=== PATIENT | female | born 1970 | race Caucasian/White ===

== ENCOUNTER → 2016-12-25 | Outpatient (CLI) | payer BC ==
[~2016-12-25] MED LIST: INSUINJ17; NVLGI; PRENTAB26
[2016-12-25 12:59] LABS: ESTIMATED AVERAGE GLUCOSE 180 mg/dl; HA1C FLAG Normal (Normal)
[2016-12-25 13:02] LABS: ALT/SGPT 39 U/L (12-78); BLOOD UREA NITROGEN 10 mg/dl (7-18); BUN/CREATININE RATIO 14.6 (10-20); CALCIUM 9.2 mg/dl (8.5-10.1); CARBON DIOXIDE 26 mmol/L (21-32); CHLORIDE 106 mmol/L (98-107); CHOLESTEROL 140 mg/dl (0-200); CREATININE 0.65 mg/dl (0.60-1.20); GLUCOSE 158 mg/dl (70-99); POTASSIUM 4.3 mmol/L (3.5-5.1); SODIUM 139 mmol/L (136-145); TRIGLYCERIDES 80 mg/dl (0-150); VERY LOW DENSITY LIPOPROT CALC 16 mg/dl
[2016-12-25 13:12] LABS: ALKALINE PHOSPHATASE 65 U/L (45-117); AST/SGOT 24 U/L (15-37); CHOLESTEROL/HDL RATIO 3.2; HDL CHOLESTEROL 44 mg/dl; LDL CHOLESTEROL CALCULATED 80 mg/dl
[2016-12-25 13:16] LABS: RATIO 19.7 mcg/mg (0-30.0)
== END | disposition home or self-care (01) ==
LOC: C.LABPBG 07:52
PROVIDERS: ATTEND Family Medicine
DX: E11.9 Type 2 diabetes mellitus without complications (principal); E78.5 Hyperlipidemia, unspecified; E55.9 Vitamin D deficiency, unspecified

== ENCOUNTER → 2017-03-02 | Outpatient (CLI) | payer BC ==
--- NOTE | 2017-03-03 15:08 | MAMMOGRAPHY REPORT ---
BILATERAL DIGITAL SCREENING MAMMOGRAM TOMOSYNTHESIS WITH CAD: 03/02/2017 CLINICAL HISTORY: Routine screening. Patient has no complaints. TECHNIQUE: Breast tomosynthesis in addition to standard 2D mammography was performed. Current study was also evaluated with a Computer Aided Detection (CAD) system. COMPARISON: Comparison is made to exams dated: 10/02/2014 mammogram, 09/25/2013 mammogram - [facility], and 12/04/2010 mammogram. BREAST COMPOSITION: There are scattered areas of fibroglandular density in both breasts. FINDINGS: There are increasing asymmetries in the medial right breast on the CC view, and in the upp er outer middle one third of the left breast. Although these findings could be related to hormone us e and represent normal fibroglandular tissue, additional targeted ultrasound and possible additional mammographic views are recommended. No other suspicious mass, architectural distortion or cluster of microcalcifications is seen. IMPRESSION: ACR BI-RADS CATEGORY 0: INCOMPLETE EVALUATION: NEED ADDITIONAL IMAGING EVALUATION The increasing asymmetries in the medial right breast and upper outer left breast need additional aime ging evaluation. The patient will be called to schedule an appointment. Approximately 10% of breast cancers are not detected with mammography. A negative mammographic report should not delay biopsy if a clinically suggestive mass is present. Bethanie David M.D. ay/:03/02/2017 16:32:49 Tractor Sweeper Driver: Elizabeth Cash, [facility] letter sent: Addl Imaging 0 BI-RADS Code: ACR BI-RADS Category 0: Incomplete Evaluation: Need Additional Imaging Evaluation
== END | disposition home or self-care (01) ==
LOC: C.MAMM 14:28
PROVIDERS: ATTEND Obstetrics & Gynecology
DX: Z12.31 Encounter for screening mammogram for malignant neoplasm of breast (principal); N64.9 Disorder of breast, unspecified

== ENCOUNTER → 2017-03-23 | Outpatient (CLI) | payer BC ==
--- NOTE | 2017-03-24 14:03 | MAMMOGRAPHY REPORT ---
UNILATERAL RIGHT DIGITAL DIAGNOSTIC MAMMOGRAM TOMOSYNTHESIS AND TARGETED BILATERAL ULTRASOUND: 03/23/19 18 CLINICAL HISTORY: 46-year-old woman called back from screening mammography for increasing asymmetries in the medial right breast and upper outer left breast. Patient denies hormone replacement therapy or significant fluctuation in weight. Family history of breast cancer = grandmother. TECHNIQUE: Spot compression tomosynthesis right CC and MLO views were obtained. COMPARISON: Comparison is made to exams dated: 03/02/2017 mammogram, 10/02/2014 mammogram - [facility], 12/04/2010 mammogram, and 09/25/2013 mammogram - [facility]. BREAST COMPOSITION: There are scattered areas of fibroglandular density in the right breast. FINDINGS: The spot compression tomosynthesis views of the right breast demonstrate partial effacemen t of the asymmetry best seen in the medial breast on the CC view. The current tomosynthesis images h ave the appearance of normal glandular tissue. There is no architectural distortion, suspicious mass or calcifications. Further evaluation with ultrasound was performed in the medial right breast and superior left breast. Targeted ultrasound performed in the medial right breast demonstrates an island of dense tissue in th e 4:00 axis, 2 cm from the nipple that could represent fibroglandular tissue or possibly PASH. Simila r appearing dense glandular tissue is seen in the left superior breast most prominent in the 12:00 ax is. No suspicious solid or cystic mass is identified bilaterally. IMPRESSION: ACR-BI-RADS CATEGORY 3: PROBABLY BENIGN, TARGETED ULTRASOUND ACR-BI-RADS CATEGORY 3: PRO BABLY BENIGN The increasing asymmetries in the right medial breast and superior left breast most likely represent normal glandular tissue accounting for differences in mammographic technique or positioning, or benig n entity such as PASH. However, a short interval follow-up bilateral diagnostic tomosynthesis mammog jamee and possible ultrasound is recommended to ensure stability in 6 months. These results and recommendations were discussed with the patient at the time of the exam. Approximately 10% of breast cancers are not detected with mammography. A negative mammographic report should not delay biopsy if a clinically suggestive mass is present. Bethanie David M.D. ay/:03/23/2017 15:07:32 Leave Specialist: Angie ANGEL)(Mel), [facility] letter sent: Follow Up Recommended 3 BI-RADS Code: ACR-BI-RADS Category 3: Probably Benign Ultrasound BI-RADS: ACR-BI-RADS Category 3: Pr obably Benign
== END | disposition home or self-care (01) ==
LOC: C.MAMM 13:18
PROVIDERS: ATTEND Obstetrics & Gynecology
DX: N64.89 Other specified disorders of breast (principal)

== ENCOUNTER → 2017-06-02 | Outpatient (CLI) | payer BC ==
[2017-06-02 13:13] LABS: BASO % 0.3 %; BASO ABS # 0.02 K/uL (0-0.2); EOS % 1.9 %; EOS ABS # 0.13 K/uL (0-0.5); HEMATOCRIT 37.9 % (37-47); HEMOGLOBIN 12.2 g/dL (12.0-16.0); IG# 0.01 K/uL (0.00-0.02); LYMPH % 25.1 %; LYMPH ABS # 1.74 K/uL (1.2-3.4); MEAN CORPUSCULAR HEMOGLOBIN 25.1 pg (25-34); MEAN CORPUSCULAR HGB CONC 32.2 g/dl (32-36); MEAN PLATELET VOLUME 11.1 fL (7.4-10.4); MONO % 7.8 %; MONO ABS # 0.54 K/uL (0.11-0.59); NEUT % 64.8 %; NEUT ABS # 4.49 K/uL (1.4-6.5); PLATELET COUNT 312 K/uL (130-400); RED CELL DISTRIBUTION WIDTH CV 15.4 % (11.5-14.5); RED CELL DISTRIBUTION WIDTH SD 43.7 fL (36.4-46.3); WHITE BLOOD COUNT 6.93 K/uL (4.8-10.8)
[2017-06-02 13:29] LABS: ALBUMIN 3.7 gm/dl (3.4-5.0); ALT/SGPT 37 U/L (12-78); AST/SGOT 20 U/L (15-37); BLOOD UREA NITROGEN 10 mg/dl (7-18); CALCIUM 8.9 mg/dl (8.5-10.1); CARBON DIOXIDE 25 mmol/L (21-32); CHOLESTEROL 115 mg/dl (0-200); CREATININE 0.61 mg/dl (0.60-1.20); GLUCOSE 125 mg/dl (70-99); SODIUM 136 mmol/L (136-145)
[2017-06-02 13:32] LABS: ALKALINE PHOSPHATASE 58 U/L (45-117); LDL CHOLESTEROL CALCULATED 56 mg/dl; TOTAL PROTEIN 7.2 gm/dl (6.4-8.2)
[2017-06-03 06:54] LABS: HEMOGLOBIN A1C 7.4 % (4.5-5.6)
== END | disposition home or self-care (01) ==
LOC: C.LABPBG 08:03
PROVIDERS: ATTEND Family Medicine
DX: E11.9 Type 2 diabetes mellitus without complications (principal); E78.5 Hyperlipidemia, unspecified; E55.9 Vitamin D deficiency, unspecified; N92.0 Excessive and frequent menstruation with regular cycle

== ENCOUNTER → 2017-09-20 | Outpatient (CLI) | payer BC ==
--- NOTE | 2017-09-20 15:11 | MAMMOGRAPHY REPORT ---
BILATERAL DIGITAL DIAGNOSTIC MAMMOGRAM TOMOSYNTHESIS WITH CAD: 09/20/2017 CLINICAL HISTORY: 47-year-old woman presents for follow-up in both breasts for increasingly prominent asymmetries in the medial right breast and upper outer left breast. She denies fluctuation in weight and hormone replacement therapy. TECHNIQUE: Bilateral CC and MLO 2D and tomosynthesis images were obtained. Current study was also ev aluated with a Computer Aided Detection (CAD) system. COMPARISON: Comparison is made to exams dated: 03/23/2017 mammogram, 03/02/2017 mammogram, 10/02/2014 ma mmogram, 09/25/2013 mammogram - [facility], and 12/04/2010 mammogram. BREAST COMPOSITION: There are scattered areas of fibroglandular density in both breasts. FINDINGS: The right medial asymmetry is less prominent comparing to the 03/02/2017 mammogram. The asy mmetry in the upper outer left breast has the appearance of normal fibroglandular tissue. Overall, n o suspicious masses, asymmetries, calcification or areas of architectural distortion are seen bilater ally. The current glandular pattern is somewhat similar to the 2010 and 2013 mammograms, suggesting these findings are due to different technique and/or compression. There is no mammographic evidence of malignancy and recommend return to annual screening mammography schedule, due in February 2018. IMPRESSION: ACR BI-RADS CATEGORY 2: BENIGN There is no mammographic evidence of malignancy in the breasts. Slight increased density bilaterally is likely due to technical parameters due to different equipment. Recommend return to annual screen ing mammography schedule, due in February 2018. These results and recommendations were discussed with the patient at the time of the exam. Some breast cancers are not detected with mammography. A negative mammographic report should not kendy y biopsy if a clinically suggestive mass is present. Bethanie David M.D. ay/:09/20/2017 14:44:39 Fuel Testing Technician: Elizabeth Cash, [facility] letter sent: Normal 1/2 BI-RADS Code: ACR BI-RADS Category 2: Benign
== END | disposition home or self-care (01) ==
LOC: C.MAMM 08:43
PROVIDERS: ATTEND Obstetrics & Gynecology
DX: N64.9 Disorder of breast, unspecified (principal)

== ENCOUNTER 2017-10-02 11:23 | Emergency (ER) | payer BC ==
[~2017-10-02] VITALS: Ht 160 cm; Wt 94.9 kg
[2017-10-02 11:26] VITALS: TEMP 36.7; Ht 160 cm; Wt 94.9 kg
[2017-10-02] MEDS ORDERED: ONDANSETRON INJ 2 MG/ML 2 ML VIAL IV STA (11:58)
[2017-10-02] MEDS ORDERED: SODIUM CHLORIDE 0.9% 1000ML 1,000 ML IV STA (11:58)
[2017-10-02 12:27] VITALS: O2SAT 98
[2017-10-02 12:39] LABS: BASO % 0.1 %; BASO ABS # 0.01 K/uL (0-0.2); HEMATOCRIT 38.8 % (37-47); HEMOGLOBIN 12.6 g/dL (12.0-16.0); IG# 0.03 K/uL (0.00-0.02); LYMPH % 20.6 %; LYMPH ABS # 1.62 K/uL (1.2-3.4); MEAN CELL VOLUME 77.3 fL (80-100); MEAN CORPUSCULAR HEMOGLOBIN 25.1 pg (25-34); MEAN CORPUSCULAR HGB CONC 32.5 g/dl (32-36); MEAN PLATELET VOLUME 10.8 fL (7.4-10.4); MONO % 9.7 %; MONO ABS # 0.76 K/uL (0.11-0.59); NEUT % 69.2 %; NEUT ABS # 5.45 K/uL (1.4-6.5); PLATELET COUNT 315 K/uL (130-400); RED CELL DISTRIBUTION WIDTH CV 15.3 % (11.5-14.5); RED CELL DISTRIBUTION WIDTH SD 42.7 fL (36.4-46.3); WHITE BLOOD COUNT 7.87 K/uL (4.8-10.8)
[2017-10-02] MEDS ORDERED: OMEG10007 PO (12:46)
[2017-10-02] MEDS ORDERED: GABA-113 PO (12:46)
[2017-10-02] MEDS ORDERED: SITA100T3 PO (12:46)
[2017-10-02] MEDS ORDERED: ASPI81TA28 PO (12:46)
[2017-10-02] MEDS ORDERED: CHOL1000 PO (12:46)
[2017-10-02] MEDS ORDERED: PRLSR20 PO (12:46)
[2017-10-02] MEDS ORDERED: GLC/500 PO (12:46)
[2017-10-02] MEDS ORDERED: GLUC15002 PO (12:46)
[2017-10-02] MEDS ORDERED: CYAN1TAB5 PO (12:46)
[2017-10-02] MEDS ORDERED: ROSU20TA PO (12:46)
--- NOTE | 2017-10-02 12:54 | EMERGENCY ROOM VISIT NOTE ---
History Report prepared by Lalo: Anabel Crenshaw Under the Supervision of: Emani LopezO. First contact with patient: 11:54 Chief Complaint: ABDOMINAL PAIN Stated Complaint: UPSET STOMACH,PAIN,BACKACHE,WEAKNESS,TIRED History of Present Illness The patient is a 47 year old female who presents to the Emergency Room with complaints of worsening abdominal pain that onset in in the past week. The patient notes that she was referred to the ED by her PCP. She notes that she takes Januvia for hyperglycemia, but the medication gives her nausea and abdominal pain. She states that she has not taken it today to try to reduce her nausea. The patient complains of back pain and nausea. The patient denies fever , unitary symptoms, chest pain, shortness of breath, vaginal bleeding, vaginal discharge, diarrhea, and vomiting. The patient has a history of cholecystectomy , D&E, her tubes tied and a miscarriage. The patient notes that her last period was last week. Source of History: patient Onset: this past week Position: abdomen Timing: worsening Modifying Factors (Worsening): other (Januvia) Associated Symptoms: + nausea, + back pain, No fevers, No chest pain, No SOB , No vomiting, No diarrhea, No urinary symptoms Note: The patient denies vaginal bleeding and vaginal discharge. Review of Systems See HPI for pertinent positives & negatives. A total of 10 systems reviewed and were otherwise negative. Past Medical & Surgical Medical Problems: (1) Miscarriage Surgical Problems: (1) H/O tubal ligation Social History Smoking Status: Never Smoker Current/Historical Medications Scheduled Aspirin (Aspirin Ec), 81 MG PO DAILY Cholecalciferol (Vitamin D3), 1 TAB PO HS Cyanocobalamin (B-12), 2,000 MCG PO WK Fish Oil ([place]-3), 2 CAP PO HS Gabapentin (Neurontin), 300 MG PO HS Liqgcljquuw-Qnemachjpje-Fpi C- (Glucosamine 1500 Complex), 1 CAP PO BID Metformin Hcl (Glucophage), 1,000 MG PO BID Omeprazole (Prilosec), 20 MG PO BID Ondasetron Odt (Zofran Odt), 4 MG SL Q6H Ranitidine Hcl (Zantac), 150 MG PO BID Rosuvastatin Calcium (Crestor), 20 MG PO HS Sitagliptin Phosphate (Januvia), 100 MG PO DAILY Allergies Coded Allergies: Meperidine (Verified Allergy, Mild, SWELLING, 10/02/17) Physical Exam Vital Signs Date Time Temp Pulse Resp B/P (MAP) Pulse Ox O2 Delivery O2 Flow Rate FiO2 10/02/17 14:02 66 18 144/87 99 Room Air 10/02/17 12:27 98 Room Air 10/02/17 12:27 98 Room Air 10/02/17 12:22 66 10/02/17 11:26 36.7 107 18 197/121 97 Room Air Physical Exam GENERAL: Patient is awake, alert, and in no acute distress. Patient is resting comfortably and showing no signs of anxiety EYES: The conjunctivae are clear. The pupils are round and reactive. EARS, NOSE, MOUTH AND THROAT: The nose is without any evidence of any deformity. Mucous membranes are moist. Tongue is midline NECK: The neck is nontender and supple. RESPIRATORY: Normal respiratory effort is noted. There is no evidence of wheezing rhonchi or rales to auscultation. CARDIOVASCULAR: Regular rate and rhythm noted. There no murmurs rubs or gallops normal S1 normal S2 GASTROINTESTINAL: The abdomen is soft. Bowel sounds are present in all quadrants. Abdomen is nontender. BACK: No midline tenderness or or step-off noted range of motion in flexion extension as well as rotation no signs of muscle spasm noted. MUSCULOSKELETAL/EXTREMITIES: There is no evidence of gross deformity. Full range of motion is noted in the hips and shoulders. SKIN: There is no obvious evidence of any rash. There are no petechiae, pallor or cyanosis noted. NEUROLOGIC: Patient is awake alert and oriented x3. [Strength is symmetric. Patellar reflexes are 2+ bilaterally.] Medical Decision & Procedures ER Provider Diagnostic Interpretation: GALLBLADDER-ABD LIMITED CLINICAL HISTORY: 47 years-old Female presenting with sent by PCP for pancreatitis work up. TECHNIQUE: Real-time grayscale and limited color Doppler ultrasound imaging of the abdomen limited to the right upper quadrant was performed. COMPARISON: None. FINDINGS: Pancreas: Visualized portions of the pancreatic head and body normal. Liver: Mildly hyperechogenic parenchyma, although the right hemidiaphragm remains visible, likely indicating mild steatosis. The liver measures 18.0 cm in maximal sagittal dimension. No sonographic evidence of hepatic mass. Main portal vein patent with normal directional flow. Biliary: No intrahepatic biliary ductal dilatation. Common bile duct measures up to 4 mm in diameter. Gallbladder: Surgically absent. Right kidney: Normal in appearance without evidence of hydronephrosis. Ascites: None. Other: None. IMPRESSION: 1. Hepatic steatosis. Correlate with liver function tests to exclude steatohepatitis as a cause for abdominal pain. 2. No sonographic evidence of pancreatitis, which does not exclude the diagnosis. Correlate with serum lipase. Electronically signed by: Paco Naranjo M.D. 10/02/2017 1:37 PM Dictated Date/Time: 10/02/2017 1:35 PM ABDOMEN 2VIEW W/PA CHEST RTN CLINICAL HISTORY: 47 years-old Female presenting with sent by PCP for pancreatitis work up. TECHNIQUE: PA view of the chest and supine and upright views of the abdomen were obtained. COMPARISON: CT from 2006 an ultrasound from earlier today. FINDINGS: Cardiomediastinal silhouette normal. Lungs and pleural spaces clear. Cholecystectomy clips noted. Additional surgical clip in the left mid abdomen. Nonobstructive bowel gas pattern. Small bowel wall thickening is difficult to exclude based on the appearance of bowel in the left abdomen. No gross pneumoperitoneum. Allowing for bowel gas and stool, no calcifications to suggest nephrolithiasis. Right hemipelvic phleboliths noted. Osseous structures normal. IMPRESSION: 1. No acute cardiopulmonary disease. 2. Questionable small bowel wall thickening, which may suggest mild enteritis. No obstruction or free air. Electronically signed by: Paco Naranjo M.D. 10/02/2017 1:56 PM Dictated Date/Time: 10/02/2017 1:54 PM Laboratory Results 10/02/17 12:22 Red Blood Count 5.02, Mean Corpuscular Volume 77.3, Mean Corpuscular Hemoglobin 25.1, Mean Corpuscular Hemoglobin Concent 32.5, Mean Platelet Volume 10.8, Neutrophils (%) (Auto) 69.2, Lymphocytes (%) (Auto) 20.6, Monocytes (%) (Auto) 9.7, Eosinophils (%) (Auto) 0.0, Basophils (%) (Auto) 0.1, Neutrophils # (Auto) 5.45, Lymphocytes # (Auto) 1.62, Monocytes # (Auto) 0.76, Eosinophils # (Auto) 0.00, Basophils # (Auto) 0.01 10/02/17 12:22 Test 10/02/17 12:22 White Blood Count 7.87 K/uL (4.8-10.8) Red Blood Count 5.02 M/uL (4.2-5.4) Hemoglobin 12.6 g/dL (12.0-16.0) Hematocrit 38.8 % (37-47) Mean Corpuscular Volume 77.3 fL (80-100) Mean Corpuscular Hemoglobin 25.1 pg (25-34) Mean Corpuscular Hemoglobin Concent 32.5 g/dl (32-36) Platelet Count 315 K/uL (130-400) Mean Platelet Volume 10.8 fL (7.4-10.4) Neutrophils (%) (Auto) 69.2 % Lymphocytes (%) (Auto) 20.6 % Monocytes (%) (Auto) 9.7 % Eosinophils (%) (Auto) 0.0 % Basophils (%) (Auto) 0.1 % Neutrophils # (Auto) 5.45 K/uL (1.4-6.5) Lymphocytes # (Auto) 1.62 K/uL (1.2-3.4) Monocytes # (Auto) 0.76 K/uL (0.11-0.59) Eosinophils # (Auto) 0.00 K/uL (0-0.5) Basophils # (Auto) 0.01 K/uL (0-0.2) RDW Standard Deviation 42.7 fL (36.4-46.3) RDW Coefficient of Variation 15.3 % (11.5-14.5) Immature Granulocyte % (Auto) 0.4 % Immature Granulocyte # (Auto) 0.03 K/uL (0.00-0.02) Urine Color YELLOW Urine Appearance CLEAR (CLEAR) Urine pH 5.0 (4.5-7.5) Urine Specific Raymond 1.018 (1.000-1.030) Urine Protein TRACE (NEG) Urine Glucose (UA) TRACE (NEG) Urine Ketones 1+ (NEG) Urine Occult Blood NEG (NEG) Urine Nitrite NEG (NEG) Urine Bilirubin NEG (NEG) Urine Urobilinogen NEG (NEG) Urine Leukocyte Esterase NEG (NEG) Urine WBC (Auto) 1-5 /hpf (0-5) Urine RBC (Auto) 0-4 /hpf (0-4) Urine Hyaline Casts (Auto) 1-5 /lpf (0-5) Urine Epithelial Cells (Auto) 20-30 /lpf (0-5) Urine Bacteria (Auto) NEG (NEG) Anion Gap 9.0 mmol/L (3-11) Est Creatinine Clear Calc Drug Dose 103.2 ml/min Estimated GFR () 112.9 Estimated GFR (Non- 97.4 BUN/Creatinine Ratio 12.8 (10-20) Calcium Level 9.7 mg/dl (8.5-10.1) Magnesium Level 1.8 mg/dl (1.8-2.4) Total Bilirubin 0.5 mg/dl (0.2-1) Direct Bilirubin 0.2 mg/dl (0-0.2) Aspartate Amino Transf (AST/SGOT) 39 U/L (15-37) Alanine Aminotransferase (ALT/SGPT) 44 U/L (12-78) Alkaline Phosphatase 63 U/L (45-117) Total Protein 8.2 gm/dl (6.4-8.2) Albumin 3.8 gm/dl (3.4-5.0) Lipase 83 U/L (73-393) Human Chorionic Gonadotropin, Qual NEG (NEG) Laboratory results per my review. Medications Administered Medications (Trade) Dose Ordered Sig/Libra Route Start Time Stop Time Status Last Admin Dose Admin Ondansetron HCl (Zofran Inj) 4 mg NOW STAT IV 10/02/17 11:58 10/02/17 12:00 DC 10/02/17 12:45 4 MG Sodium Chloride 1,000 ml @ 999 mls/hr Q1H1M STAT IV 10/02/17 11:58 10/02/17 12:58 DC 10/02/17 11:58 999 MLS/HR ED Course 1155: The patient was evaluated in room B6. A complete history and physical examination were performed. 1158: Ordered Sodium Chloride 1,000 ml @ 999 mls/hr IV, Zofran 4 mg IV. 1410: Upon reevaluation, the patient is resting comfortably. I discussed the results and treatment plan with her. She verbalized agreement of the treatment plan. She was discharged home. Medical Decision Prior records/ancillary studies reviewed. Triage Nursing notes reviewed. The patient's history was concerning for abdominal pain. Differential diagnosis: Etiologies such as appendicitis, diverticulitis, PUD, biliary pathology, UTI, pancreatitis, obstruction, mesenteric ischemia, aortic pathology, infections, inflammatory bowel disease, renal colic, as well as others were entertained. The patient is a 47-year-old female who presented to the [facility] department with epigastric abdominal pain. The patient did not have a physical exam consistent with an acute surgical abdomen. The patient was treated with IV fluids and IV Zofran. She was feeling much better on subsequent reevaluation. The patient states that she has had ongoing pain for the last few months. She states it is related to 1 of her medications. I discussed patient's laboratory and radiographic studies with her. She states she was sent to the emergency department today specifically for the possibility of pancreatitis. She does not appear to have pancreatitis by laboratory studies. She was encouraged to continue all medications as prescribed and follow-up with her primary care physician prior to changing any medication regimens. She is also encouraged to return the emergency department immediately if symptoms change worsen or the need arises. Medication Reconcilliation Current Medication List: was personally reviewed by me Blood Pressure Screening Patient's blood pressure: Elevated blood pressure Blood pressure disposition: Elevated BP felt to be situational Impression Primary Impression: Epigastric abdominal pain Scribe Attestation The scribe's documentation has been prepared under my direction and personally reviewed by me in its entirety. I confirm that the note above accurately reflects all work, treatment, procedures, and medical decision making performed by me. Departure Information Dispostion Home / Self-Care Prescriptions Ranitidine Hcl (ZANTAC) 150 Mg Tab 150 MG PO BID, #60 TAB Prov: Heber Abrams, DO 10/02/17 Ondasetron Odt (ZOFRAN ODT) 4 Mg Tab 4 MG SL Q6H for Nausea, #15 TAB Prov: Heber Abrams, DO 10/02/17 Referrals No Doctor, Assigned (PCP) Forms Call Back Authorization, HOME CARE DOCUMENTATION FORM, IMPORTANT VISIT INFORMATION Patient Instructions My [facility] Additional Instructions Call your family doctor to schedule a follow-up appointment. Continue all medications as prescribed. Discussed with your family doctor the possibility that you may require a change in your medications or possibly a referral to a report developer. Return the emergency department immediately if symptoms change worsen or if the need arises.
[2017-10-02 13:00] LABS: ALBUMIN 3.8 gm/dl (3.4-5.0); CALCIUM 9.7 mg/dl (8.5-10.1); CREATININE 0.73 mg/dl (0.60-1.20); POTASSIUM 4.1 mmol/L (3.5-5.1); TOTAL PROTEIN 8.2 gm/dl (6.4-8.2)
--- NOTE | 2017-10-02 13:38 | DIAGNOSTIC IMAGING REPORT ---
GALLBLADDER-ABD LIMITED CLINICAL HISTORY: 47 years-old Female presenting with sent by PCP for pancreatitis work up. TECHNIQUE: Real-time grayscale and limited color Doppler ultrasound imaging of the abdomen limited to the right upper quadrant was performed. COMPARISON: None. FINDINGS: Pancreas: Visualized portions of the pancreatic head and body normal. Liver: Mildly hyperechogenic parenchyma, although the right hemidiaphragm remains visible, likely indicating mild steatosis. The liver measures 18.0 cm in maximal sagittal dimension. No sonographic evidence of hepatic mass. Main portal vein patent with normal directional flow. Biliary: No intrahepatic biliary ductal dilatation. Common bile duct measures up to 4 mm in diameter. Gallbladder: Surgically absent. Right kidney: Normal in appearance without evidence of hydronephrosis. Ascites: None. Other: None. IMPRESSION: 1. Hepatic steatosis. Correlate with liver function tests to exclude steatohepatitis as a cause for abdominal pain. 2. No sonographic evidence of pancreatitis, which does not exclude the diagnosis. Correlate with serum lipase. Electronically signed by: Paco Naranjo M.D. 10/02/2017 1:37 PM Dictated Date/Time: 10/02/2017 1:35 PM
--- NOTE | 2017-10-02 13:58 | DIAGNOSTIC IMAGING REPORT ---
ABDOMEN 2VIEW W/PA CHEST RTN CLINICAL HISTORY: 47 years-old Female presenting with sent by PCP for pancreatitis work up. TECHNIQUE: PA view of the chest and supine and upright views of the abdomen were obtained. COMPARISON: CT from 2006 an ultrasound from earlier today. FINDINGS: Cardiomediastinal silhouette normal. Lungs and pleural spaces clear. Cholecystectomy clips noted. Additional surgical clip in the left mid abdomen. Nonobstructive bowel gas pattern. Small bowel wall thickening is difficult to exclude based on the appearance of bowel in the left abdomen. No gross pneumoperitoneum. Allowing for bowel gas and stool, no calcifications to suggest nephrolithiasis. Right hemipelvic phleboliths noted. Osseous structures normal. IMPRESSION: 1. No acute cardiopulmonary disease. 2. Questionable small bowel wall thickening, which may suggest mild enteritis. No obstruction or free air. Electronically signed by: Paco Naranjo M.D. 10/02/2017 1:56 PM Dictated Date/Time: 10/02/2017 1:54 PM
[2017-10-02] MEDS ORDERED: RANI150T3 PO (14:00)
[2017-10-02] MEDS ORDERED: ONDA4TAB10 SL (14:00)
[2017-10-02 14:02] VITALS: BP 144/87; PULSE 66; O2SAT 99
== END 2017-10-02 14:10 | disposition home or self-care (01) ==
LOC: C.EDB 11:24
DX: R10.13 Epigastric pain (principal); Z79.899 Other long term (current) drug therapy; Z79.82 Long term (current) use of aspirin; Z98.51 Tubal ligation status; Z88.6 Allergy status to analgesic agent